=== PATIENT | male | born 1985 | race Caucasian/White ===

== ENCOUNTER → 2018-11-28 | Outpatient (CLI) | payer BC ==
--- NOTE | 2018-11-28 18:44 | RADIOLOGY REPORT (SQ) ---
EXAM DESCRIPTION: U/S SCROTUM W/O DOPPLER COMPLETED DATE/TIME: 11/28/2018 5:45 pm REASON FOR STUDY: N50.819 TESTICULAR PAIN, UNSPECIFIED N50.819 TESTICULAR PAIN, UNSPECIFIED COMPARISON: None. TECHNIQUE: Static and realtime beasley scale imaging of the scrotum and testes. Selected color Doppler and spectral images recorded to document blood flow. LIMITATIONS: None. FINDINGS: RIGHT: TESTICLE: Normal size, 3.8 x 2.2 x 4.1 cm. Normal echotexture. Normal blood flow. No mass. EPIDIDYMIS: Prominent, 1.7 cm. HYDROCELE OR VARICOCELE: Small hydrocele HERNIA OR EXTRA-TESTICULAR MASS: No. OTHER: No other significant finding. LEFT: TESTICLE: Normal size, 3.2 x 2.3 x 4.7 cm. Normal echotexture. Normal blood flow. No solid mass. T here is a 5 x 3 x 6 mm cyst. EPIDIDYMIS: Normal, 1.4 cm. HYDROCELE OR VARICOCELE: There is a 3.2 mm varicocele. HERNIA OR EXTRA-TESTICULAR MASS: No. OTHER: No other significant finding. IMPRESSION: Small right hydrocele. Cannot exclude epididymitis on the right. Small left testicular cyst. Left varicocele. TECHNICAL DOCUMENTATION: JOB ID: [id number] [employer]- All Rights Reserved Reading location - IP/workstation name: [email or web address]
== END ==
LOC: RAD 16:59
PROVIDERS: ATTEND Nurse Practitioner Family
DX: N50.811 Right testicular pain (principal); N43.3 Hydrocele, unspecified; N44.2 Benign cyst of testis; I86.1 Scrotal varices
CPT/HCPCS: 76870